=== PATIENT | female | born 1995 | race Caucasian/White ===

== ENCOUNTER 2018-03-23 13:13 | Emergency (ER) | payer BC ==
[2018-03-23] MEDS ORDERED: diphenhydrAMINE 50 MG/ML VIAL ONE (13:58)
[2018-03-23] MEDS ORDERED: Metoclopramide HCl 10 MG/2 ML VIAL ONE (13:58)
[2018-03-23] MEDS ORDERED: Ketorolac Tromethamine 30 MG/ML VIAL ONE (13:58)
== END 2018-03-23 15:50 | disposition home or self-care (01) ==
LOC: ERS 13:13
DX: R51 Headache (principal); F41.9 Anxiety disorder, unspecified; F32.9 Major depressive disorder, single episode, unspecified
CPT/HCPCS: 96365; 96375; J1200; J1885; J2765